=== PATIENT | female | born 1945 | race American Indian/Alaskan Native ===

== ENCOUNTER 2018-05-16 11:37 | Outpatient (CLI) | payer MEDICARE | END 2018-05-16 11:38 | disposition home or self-care (01) | LOC: RAD 11:37 ==

== ENCOUNTER 2018-05-23 12:06 | Emergency (ER) | payer MEDICARE ==
[2018-05-23 12:22] VITALS: BMI 27.3
[2018-05-23 12:27] VITALS: RESP 18
--- NOTE | 2018-05-23 14:23 | ED PDOC ---
Arrival/HPI - General Chief Complaint: Finger,Hand,&Wrist Time Seen by Provider: 05/23/18 12:27 Historian: Patient - History of Present Illness Narrative History of Present Illness (Text): 05/23/18 12:28 72 year old female, whose past medical history includes hypertension and borderline diabetes, who presents to the Emergency department complaining of right hand pain and swelling status post accidentally hitting her hand on a shopping cart at a supermarket 2 days prior to arrival. Patient states she has trouble straightening her fingers again after bending her fingers. Patient notes the pain is toward the center of inner palm on right hand, with radiation to middle finger. Patient states she took Ibuprofen at home, with mild relief of pain. Patient denies fever, chills, chest pain, shortness of breath, nausea, vomiting, diarrhea, urinary symptoms, back pain, neck pain, headache, dizziness, or any other complaints. PMD: none. Time/Duration: > week (Patient notes she injured her finger 2 days prior to arrival ) Symptom Onset: Sudden Symptom Course: Unchanged Activities at Onset: Light Past Medical History - Provider Review Nursing Documentation Reviewed: Yes - Infectious Disease Hx of Infectious Diseases: None - Cardiac Hx Cardiac Disorders: Yes Hx Hypertension: Yes - Pulmonary Hx Respiratory Disorders: No - Neurological Hx Neurological Disorder: No - HEENT Hx HEENT Disorder: No - Renal Hx Renal Disorder: No - Endocrine/Metabolic Hx Endocrine Disorders: Yes ([place]line Diabetic) - Hematological/Oncological Hx Blood Disorders: No - Integumentary Hx Dermatological Disorder: No - Musculoskeletal/Rheumatological Hx Musculoskeletal Disorders: No - Gastrointestinal Hx Gastrointestinal Disorders: No - Genitourinary/Gynecological Hx Genitourinary Disorders: No - Psychiatric Hx Psychophysiologic Disorder: No Hx Substance Use: No Family/Social History - Physician Review Nursing Documentation Reviewed: Yes Family/Social History: No Known Family HX Smoking Status: Never Smoked Hx Alcohol Use: No Hx Substance Use: No Allergies/Home Meds Allergies/Adverse Reactions: Allergies shellfish derived Allergy (Verified 05/23/18 12:21) SWELLING Home Medications: Home Meds Medication Instructions Recorded Confirmed RX: Unobtainable 05/23/18 05/23/18 Review of Systems - Physician Review All systems were reviewed & negative as marked: Yes - Review of Systems Constitutional: Normal. absent: Fevers, Night Sweats Respiratory: Normal. absent: SOB Cardiovascular: Normal. absent: Chest Pain Gastrointestinal: Normal. absent: Diarrhea, Nausea, Vomiting Genitourinary Female: Normal. absent: Urine Output Changes Musculoskeletal: Other (Pt notes trouble straightening fingers again after bending them ). absent: Normal, Back Pain, Neck Pain Neurological: Normal. absent: Headache, Dizziness Physical Exam - Physical Exam Narrative Physical Exam (Text): Constitutional: No acute distress. Head: Normocephalic. Atraumatic. Eyes: PERRL. ENT: Moist mucous membranes. Neck: Supple. Cardiovascular: Regular rate. Chest: No tenderness. Respiratory: Clear to auscultation bilaterally. GI: Soft. Nontender. Nondistended. Back: No CVA tenderness. Musculoskeletal: No tenderness or swelling of extremities. No tenderness on hand. Unable to achieve full flexion of 3rd digit on right hand at level of MCP. Skin: No rash. Neurologic: Alert, no focal deficit. Vital Signs Reviewed: Yes Vital Signs Temp Pulse Resp BP Pulse Ox 05/23/18 12:26 98.0 F 62 18 137/89 97 Temperature: Afebrile Blood Pressure: Normal Pulse: Regular Respiratory Rate: Normal Appearance: Positive for: Well-Appearing, Non-Toxic Pain Distress: Mild Mental Status: Positive for: Alert and Oriented X 3 Medical Decision Making ED Course and Treatment: 05/23/18 12:28 Impression: 72 year old female presents to the Emergency department for evaluation of right hand pain and swelling status post accidentally hitting her hand on a shopping cart 2 days prior to arrival. Differential Diagnosis included but are not limited to: Plan: -- X-Ray of right hand -- Reassess and disposition Progress Notes: 05/23/18 14:00 X-Ray of right hand reviewed by me, shows: Impression: No fracture or dislocation. Discharged home, f/u Hand, return to ED for worsening pain, swelling, fever, or any other problem. - RAD Interpretation Radiology Orders: 05/23/18 12:36 HAND RIGHT 3 VIEWS [RAD] Stat - Scribe Statement The provider has reviewed the documentation as recorded by the Scribe Elisa Cason All medical record entries made by the Scribe were at my direction and personally dictated by me. I have reviewed the chart and agree that the record accurately reflects my personal performance of the history, physical exam, medical decision making, and the department course for this patient. I have also personally directed, reviewed, and agree with the discharge instructions and disposition. Disposition/Present on Arrival - Present on Arrival Any Indicators Present on Arrival: No History of DVT/PE: No History of Uncontrolled Diabetes: No Urinary Catheter: No History of Decub. Ulcer: No History Surgical Site Infection Following: None - Disposition Have Diagnosis and Disposition been Completed?: Yes Diagnosis: Hand pain Disposition: HOME/ ROUTINE Disposition Time: 14:33 Patient Plan: Discharge Condition: STABLE Discharge Instructions (ExitCare): Hand Pain (DC) Referrals: Kalli Montero MD [Staff Provider] - Follow up with primary Forms: [facility] [facility] (Sudanese)
--- NOTE | 2018-05-23 14:53 | RAD ---
PROCEDURE: Right Hand Radiographs. HISTORY: 3rd digit pain COMPARISON: None. FINDINGS: BONES: No acute fracture or destructive bony lesion identified. Trace heterotopic bone is seen medial to the distal interphalangeal joint of right long finger. JOINTS: No subluxation or dislocation evident. Degenerative changes are mild at the interphalangeal joints diffusely. SOFT TISSUES: Normal. OTHER FINDINGS: None. IMPRESSION: No acute fracture or dislocation right hand. No destructive bony lesion appreciable.
[2018-05-23 15:42] VITALS: BP 134/87; PULSE 65; TEMP 98; O2SAT 99
== END 2018-05-23 14:45 | disposition home or self-care (01) ==
LOC: ED 12:06
DX: M79.641 Pain in right hand (principal); I10 Essential (primary) hypertension; R73.03 Prediabetes